=== PATIENT | female | born 2005 | race Two or more races ===

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

== ENCOUNTER 2024-05-13 08:34 | Emergency (ER) | payer MEDICAID ==
[~2024-05-13] VITALS: Ht 160 cm; Wt 105.1 kg
[~2024-05-13 08:34] MED LIST changes: +GUAI400T92 PO
[2024-05-13 08:40] VITALS: BP 124/76; PULSE 91; TEMP 98.5; O2SAT 96
[2024-05-13 09:26] VITALS: RESP 20
[2024-05-13] MEDS ORDERED: BENZ-38 PO (09:30)
== END 2024-05-13 09:46 | disposition home or self-care (01) ==
LOC: ER 08:35
DX: J22 Unspecified acute lower respiratory infection (principal); F12.90 Cannabis use, unspecified, uncomplicated
CPT/HCPCS: 99283

== ENCOUNTER 2024-07-03 19:29 | Emergency (ER) | payer MEDICAID ==
[~2024-07-03] VITALS: Ht 160 cm; Wt 109.9 kg
[2024-07-03 19:40] VITALS: BP 118/91; PULSE 89; TEMP 98.1; O2SAT 98
[2024-07-03 20:00] LABS: BILIRUBIN,URINE NEGATIVE (Neg); CLARITY,URINE CLEAR (Clear); COLOR,URINE YELLOW (Yellow); GLUCOSE, URINE NEGATIVE (Neg); KETONES,URINE NEGATIVE (Neg); LEUKOCYTE ESTERASE ,URINE NEGATIVE (Neg); NITRITES, URINE NEGATIVE (Neg); OCCULT BLOOD,URINE TRACE-INTACT (Neg); PROTEIN,URINE TRACE mg/dl (Neg); URINE HCG NEGATIVE (NEG); UROBILINOGEN,URINE 0.2 E.U/dL (0.2-1.0)
[2024-07-03 20:05] LABS: UA COLLECTION TYPE CLN CATCH MIDSTREAM
[2024-07-03 20:07] LABS: SQUAMOUS EPITHELIAL CELL,UR MODERATE /LPF (FEW)
[2024-07-03 20:08] LABS: BACTERIA,URINE 2+ /HPF (Neg); WBC,URINE 0-4 /HPF (0-4)
[2024-07-03 22:56] VITALS: RESP 18
[2024-07-03] MEDS: ketorolac trometh 30MG/ML vial 30 MG/ML VIAL IM ONE (22:56)
[2024-07-03 23:12] LABS: ALANINE AMINOTRANSFERASE 22 U/L (12-78); ALBUMIN 4.1 G/DL (3.4-5.0); ALBUMIN/GLOBULIN RATIO 0.9 (1.1-1.5); ALKALINE PHOSPHATASE 88 IU/L (20-180); ANION GAP 7 (8-16); ASPARTATE AMINO TRANSFERASE 13 U/L (10-37); BILIRUBIN,TOTAL 0.3 MG/DL (0.1-1.0); BLOOD UREA NITROGEN 15 MG/DL (7-18); BUN/CREATININE RATIO 26.3 (10.0-20.0); CALCIUM 9.5 MG/DL (8.5-10.1); CHLORIDE 102 MMOL/L (99-107); CREATININE 0.57 MG/DL (0.40-0.90); GLUCOSE 105 MG/DL (70-104); POTASSIUM 4.2 MMOL/L (3.5-5.1); SODIUM 138 MMOL/L (135-145); TOTAL CARBON DIOXIDE 29.2 MMOL/L (24-32); TOTAL PROTEIN 8.5 G/DL (6.4-8.2); eCRCL 131 ML/MIN; eGFR > 90 ML/MIN
[2024-07-03 23:26] LABS: BASOPHILS # (AUTO) 0.1 X10'3 (0-0.2); BASOPHILS % (AUTO) 0.4 % (0-1); EOSINOPHILS # (AUTO) 0.2 X10'3 (0-0.9); EOSINOPHILS % (AUTO) 1.4 % (0-6); HEMATOCRIT 39.6 % (35.0-45.0); HEMOGLOBIN 12.6 g/dl (12.0-16.0); LYMPHOCYTES # (AUTO) 2.2 X10'3 (1.1-4.8); LYMPHOCYTES % (AUTO) 18.6 % (21-51); MEAN CORPUSCULAR HEMOGLOBIN 23.8 PG (27.0-31.0); MEAN CORPUSCULAR HGB CONC 31.8 g/dL (33.0-36.5); MEAN CORPUSCULAR VOLUME 74.9 FL (78-98); MEAN PLATELET VOLUME 8.1 FL (7.4-10.4); MONOCYTES # (AUTO) 0.8 X10'3 (0-0.9); MONOCYTES % (AUTO) 6.9 % (2-12); NEUTROPHILS # (AUTO) 8.6 X10'3 (1.8-7.7); NEUTROPHILS % (AUTO) 72.7 % (42-75); PLATELET COUNT 393 X10'3 (140-440); RED CELL DISTRIBUTION WIDTH 15.3 % (11.5-14.5); WHITE BLOOD COUNT 11.9 X10'3 (4.5-11.0)
== END 2024-07-04 00:25 | disposition home or self-care (01) ==
LOC: ER 19:30
DX: N39.0 Urinary tract infection, site not specified (principal); F12.90 Cannabis use, unspecified, uncomplicated; Z79.899 Other long term (current) drug therapy
CPT/HCPCS: 36415; 76770; 80053; 81001; 81025; 85025; 96372; 99285; J1885

== ENCOUNTER 2025-03-31 21:45 | Emergency (ER) | payer MEDICAID ==
[~2025-03-31] VITALS: Ht 160 cm; Wt 122.3 kg
[2025-03-31 21:54] VITALS: BP 121/105; PULSE 97; O2SAT 98
--- NOTE | 2025-03-31 22:03 | ELECTROCARDIOGRAPH REPORT ---
[facility] Test Date: 2025-03-31 Test Time: 21:51:02 Pat Name: MIRANDA LEÓN Department: EMERGENCY ROOM Room: Gender: F Can Feeder: KIMBER : 2005 Requested By: SANJUANITA CAMPOS Order Number: [id number] Reading MD: Dr. EMERSON Manrique Measurements Intervals [place] Rate: 104 P: 32 TX: 175 QRS: 41 QRSD: 81 T: -10 QT: 334 QTc: 440 Interpretive Statements Sinus tachycardia Low voltage, precordial leads Borderline repolarization abnormality Baseline wander in lead(s) V3,V4,V5,V6 Electronically Signed On 04-02-2025 12:54:[address] EMERSON Manrique Please click the below link to view image of tracing.
[2025-03-31 22:44] LABS: MEAN PLATELET VOLUME 8.4 FL (7.4-10.4); RED CELL DISTRIBUTION WIDTH 16.3 % (11.5-14.5)
[2025-03-31 22:54] LABS: CREATININE 0.65 MG/DL (0.40-0.90); TOTAL CARBON DIOXIDE 23.4 MMOL/L (24-32); eCRCL 114 ML/MIN; eGFR > 90 ML/MIN
--- NOTE | 2025-03-31 23:13 | Physician Documentation ---
History of Present Illness ~ Chief Complaint: Headache Stated Complaint: HEADACHE Time Seen by MD: 23:01 Primary Medical Doctor: YUE FERGUSON HPI 19-year-old female presents to the ED with a complaint of 16 hours of a migraine. She states she feels lots of pressure in her head. He has light sensitivity and had nausea earlier today. Denies any focal deficits has no dif ficulty with balance. Denies any history of neurological problems states she took Tylenol earlier without much benefit Day of Onset: Mar 31, 2025 Medication Reconciliation Allergies: Coded Allergies: No Known Allergies (Unverified , 03/31/25) Scheduled Guaifenesin (Guaifenesin), 1 TAB PO Q8H Levalbuterol Tartrate* (Xopenex Inhaler*), 2 PUFF IH Q4H Miscellaneous Medications Home Med List (No Home Medications), (Reported) Past Medical History Past Medical History: No Pertinent History, Allergic Rhinitis Past Surgical History: noncontributory Alcohol Use: None Drug Use: marijuana Lives with: Mother Lives In: Home Occupation: child Review of Systems All Other Systems at this time: Reviewed and Negative ROS As stated above in the HPI, otherwise all systems are reviewed and negative. Physical Exam Vital Signs: Temperature: 98.0, Heart Rate: 97, Respiratory Rate: 18, BP: 121/105, Pulse Oximetry: 98, Weight: 122.300 Physical Exam General: Alert, no apparent distress. HEENT: PERRL, EOMI, no injection, moist mucous membranes. Neck: Full range of motion. Cardiovascular: Regular rate and rhythm, no murmurs. Gastrointestinal: Soft, nontender, nondistended. Bowels sounds present. Extremities: Normal range of motion, no deformity. Neurologic: Oriented x4. Psychiatric: Normal mood and affect. Skin: Normal color, warm and dry. No edema, no ecchymosis. Progress Results/Orders Results/Orders Completed Orders - BRYCE PACHECO NP Ketorolac Trometh 30mg/Ml Vial (Toradol (03/31/25 23:10) Sumatriptan Succ. Inj. (Imitrex 6mg Inj. (03/31/25 23:10) Metoclopramide Tablet (Reglan Tablet) (03/31/25 23:15) Medications Received in ER Medications (Trade) Dose Ordered Sig/Franck Route PRN Reason Start Time Stop Time Status Last Admin Dose Admin (Toradol inj. 30mg/ml) 30 mg ONCE ONCE IM 03/31/25 23:10 03/31/25 23:11 DC 03/31/25 23:21 30 MG (Imitrex 6mg inj.) 6 mg ONCE ONCE SQ 03/31/25 23:10 03/31/25 23:11 DC 03/31/25 23:21 6 MG (Reglan tablet) 10 mg ONCE ONCE PO 03/31/25 23:15 03/31/25 23:17 DC 03/31/25 23:21 10 MG Vital Signs 03/31/25 03/31/25 21:54 23:21 Temp 98.0 Pulse 97 Resp 18 18 B/P (MAP) 121/105 Pulse Ox 98 Laboratory Tests Test 03/31/25 21:57 White Blood Count 7.1 Red Blood Count 5.30 Hemoglobin 12.6 Hematocrit 38.7 Mean Corpuscular Volume 73.0 L Mean Corpuscular Hemoglobin 23.8 L Mean Corpuscular Hemoglobin Concent 32.6 L Red Cell Distribution Width 16.3 H Platelet Count 348 Mean Platelet Volume 8.4 Neutrophils (%) (Auto) 81.8 H Lymphocytes (%) (Auto) 5.8 L Monocytes (%) (Auto) 10.6 Eosinophils (%) (Auto) 1.2 Basophils (%) (Auto) 0.6 Neutrophils # (Auto) 5.8 Lymphocytes # (Auto) 0.4 L Monocytes # (Auto) 0.8 Eosinophils # (Auto) 0.1 Basophils # (Auto) 0.0 CBC Comment Sodium Level 138 Potassium Level 4.0 Chloride Level 103 Carbon Dioxide Level 23.4 L Anion Gap 12 Blood Urea Nitrogen 16 Creatinine 0.65 Estimated GFR/1.73 m2 > 90 BUN/Creatinine Ratio 24.6 H Glucose Level 109 H Calcium Level 9.0 Total Bilirubin 0.1 Aspartate Amino Transf (AST/SGOT) 17 Alanine Aminotransferase (ALT/SGPT) 17 Alkaline Phosphatase 75 Total Protein 8.0 Albumin 4.0 Globulin 4.0 Albumin/Globulin Ratio 1.0 L Chemistry Comments Medical Decision Making Additional information obtaine: old records Findings Treated patient empirically with Reglan Toradol and sumatriptan reported improved symptoms and states she is ready to go home Differential Dx:Considerations: Include: CEVALLOS-Cluster, CEVALLOS-Migraine, CEVALLOS-Hypertensive, CEVALLOS-Muscular contraction, CEVALLOS-Post lumbar puncture, Carbon monoxide toxicity, Close head injuyr, CVA, Fever induced, Hemorrhage-Epidural, Hemorrhage-Intracerebral, Hemorrhage-Subarachnoid, Hemorrhage-Subdural, Mass lesion, Meningitis, Post-traumtic, Pseudotumor cerebri, Sinusitis, Temporal arteritis, Trigeminal neuralgia, Other Departure Disposition: 01 HOME / SELF CARE / HOMELESS Impression: Primary Impression: Migraine Condition: Improved Discharge Instructions: Migraine Headache Referrals: NO PRIMARY CARE PROVIDER (PCP) Signature Scribe Signature: u Attestation: Scribed for Bryce Pacheco Business Unit Manager by Bryce Marina NP . 03/31/25 23:13 BRYCE PACHECO NP Mar 31, 2025 23:13
[2025-03-31 23:21] VITALS: RESP 18
[2025-03-31] MEDS: SUMAtriptan succ. 6 MG/0.5ml vial SQ ONE (23:21)
[2025-03-31] MEDS: ketorolac trometh 30MG/ML vial 30 MG/ML VIAL IM ONE (23:21)
[2025-04-01 00:03] VITALS: TEMP 98
== END 2025-04-01 00:04 | disposition home or self-care (01) ==
LOC: ER 21:45
DX: G43.909 Migraine, unspecified, not intractable, without status migrainosus (principal); F12.90 Cannabis use, unspecified, uncomplicated; Z79.899 Other long term (current) drug therapy
CPT/HCPCS: 36415; 80053; 85025; 93005; 96372; 99284; J1885; J3030